=== PATIENT | male | born 1945 | race Caucasian/White ===

== ENCOUNTER 2018-01-15 05:30 | Inpatient (IN) | payer OTHER ==
[~2018-01-15] VITALS: Ht 165.1 cm; Wt 63.2 kg
[2018-01-15 05:36] VITALS: BP 110/36
[2018-01-15 07:09] LABS: HEMATOCRIT 28.2 % (42.0-52.0); HEMOGLOBIN 8.4 g/dl (14.0-18.0); MEAN CELL VOLUME 95.6 fl (80.0-94.0); MEAN CORPUSCULAR HGB 28.5 pg (27.0-31.0); MEAN CORPUSCULAR HGB CONC 29.8 g/dl (33.0-37.0); MEAN PLATELET VOLUME 9.9 fl (9.6-12.3); PLATELET COUNT AUTOMATED 404 10*3/uL (130-400); RED BLOOD COUNT 2.95 10*6/uL (4.50-5.90); RED CELL DISTRI WIDTH 16.9 % (0-14.5)
[2018-01-15 07:29] LABS: WHITE BLOOD COUNT 44.8 10*3/uL (4.8-10.8)
[2018-01-15 07:31] LABS: PLATELET SUFFICIENCY HIGH (NORMAL); TOTAL CELLS COUNTED 100 #CELLS
[2018-01-15 07:32] LABS: DOHLE BODIES FEW; POLYCHROMASIA SLIGHT; TOXIC GRANULATION SLIGHT
[2018-01-15 07:33] LABS: BURR CELLS FEW
[2018-01-15 07:37] LABS: POTASSIUM 5.2 mmol/L (3.5-5.1)
[2018-01-15 07:40] LABS: CREATININE 2.9 mg/dL (0.70-1.30); PHOSPHOROUS 4.4 mg/dL (2.5-4.9)
[2018-01-15 07:45] VITALS: BP 90/44
[2018-01-15 10:41] VITALS: BP 94/44
[2018-01-15 11:11] VITALS: BP 92/50
[2018-01-15 16:00] VITALS: BP 84/50
[2018-01-15 20:00] VITALS: BP 116/82
[2018-01-16] VITALS: BP 75/39
[2018-01-16 08:00] VITALS: BP 95/46
[2018-01-16 12:00] VITALS: BP 98/42
== END 2018-01-16 13:02 | disposition hospice, home (50) | DRG 871 ==
LOC: ED 05:30 → 5E 06:01 → EDHOLD 06:01 → 5E 11:08
PROVIDERS: Student in an Organized Health Care Education/Training Program
DX: A41.9 Sepsis, unspecified organism (principal); M72.6 Necrotizing fasciitis; M25.552 Pain in left hip; Z51.5 Encounter for palliative care; I10 Essential (primary) hypertension; Z66 Do not resuscitate; C67.9 Malignant neoplasm of bladder, unspecified; E78.5 Hyperlipidemia, unspecified; M54.5 Low back pain; Z92.21 Personal history of antineoplastic chemotherapy; Z88.0 Allergy status to penicillin

== ENCOUNTER 2018-01-16 13:07 | Inpatient (IN) | payer OTHER ==
[~2018-01-16] VITALS: Ht 165.1 cm; Wt 74.9 kg
[2018-01-16 16:00] VITALS: BP 80/42
[2018-01-16 20:00] VITALS: BP 82/41
[2018-01-17] VITALS: BP 73/59
[2018-01-17 08:00] VITALS: BP 106/50
[2018-01-17 12:00] VITALS: BP 94/40
[2018-01-17 16:00] VITALS: BP 99/84
[2018-01-17 18:00] VITALS: BP 90/45
[2018-01-18] VITALS: BP 96/43
[2018-01-18 08:00] VITALS: BP 92/52
[2018-01-18 13:31] VITALS: BP 92/52
[2018-01-18 16:00] VITALS: BP 85/52
[2018-01-18 18:00] VITALS: BP 85/52
[2018-01-18 20:00] VITALS: BP 102/48
[2018-01-19] VITALS: BP 95/55
[2018-01-19 08:00] VITALS: BP 100/71
[2018-01-19 12:00] VITALS: BP 108/80
[2018-01-19 16:00] VITALS: BP 70/49
[2018-01-19 20:00] VITALS: BP 81/44
[2018-01-20] VITALS: BP 96/47
[2018-01-20 08:00] VITALS: BP 100/54
[2018-01-20 16:00] VITALS: BP 82/48
[2018-01-20 20:00] VITALS: BP 74/42
[2018-01-21] VITALS: BP 88/47
[2018-01-21 08:00] VITALS: BP 77/47
[2018-01-21 12:00] VITALS: BP 71/41
[2018-01-21 15:30] VITALS: BP 64/32
== END 2018-01-21 16:07 | disposition expired | DRG 558 ==
LOC: 5E 13:07
DX: M72.6 Necrotizing fasciitis (principal); M25.552 Pain in left hip; M54.5 Low back pain; E78.5 Hyperlipidemia, unspecified; Z66 Do not resuscitate; I10 Essential (primary) hypertension; C67.9 Malignant neoplasm of bladder, unspecified; Z51.5 Encounter for palliative care; Z90.49 Acquired absence of other specified parts of digestive tract; Z88.0 Allergy status to penicillin; Z87.891 Personal history of nicotine dependence